=== PATIENT | male | born 2000 | race Caucasian/White ===

== ENCOUNTER 2023-05-26 09:24 | Emergency (ER) | payer OTHER, SELFPAY ==
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
[2023-05-26 09:24] VITALS: BP 139/79; PULSE 81; RESP 18; TEMP 36.5; O2SAT 98
[2023-05-26] MEDS: KETOROLAC (*BKC) 60 MG/2 ML VIAL IM (09:51)
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
[2023-05-26 10:10] VITALS: BP 137/76; PULSE 73; RESP 20; O2SAT 97
== END 2023-05-26 10:21 | disposition home or self-care (01) ==
PROVIDERS: Emergency Provider Emergency Medicine
DX: S83.91XA Sprain of unspecified site of right knee, initial encounter (principal); V28.49XA Other motorcycle driver injured in noncollision transport accident in traffic accident, initial encounter
CPT/HCPCS: 73562; 96372; 99283; J1885